=== PATIENT | male | born 1995 | race Two or more races ===

== ENCOUNTER 2018-03-26 11:36 | Emergency (ER) | payer BC ==
[~2018-03-26] VITALS: Ht 185.4 cm; Wt 95.3 kg
[2018-03-26] MEDS ORDERED: EPINEPHrine 1mg/1ml Amp IM ONE (12:00)
[2018-03-26] MEDS ORDERED: Solu-MEDROL 125mg Inj IVP ONE (12:00)
[2018-03-26] MEDS ORDERED: DiphenhydrAMINE 50mg/ml Inj IVP ONE (12:00)
[2018-03-26 12:22] LABS: BASOPHILS % (AUTO) 1.6 % (0.0-2.0); EOSINOPHILS % (AUTO) 2.8 % (0.0-3.0); HEMATOCRIT 56.7 % (42.0-52.0); LYMPHOCYTES % (AUTO) 36.9 % (20.0-45.0); MEAN CORPUSCULAR VOLUME 88 FL (80-99); MONOCYTES % (AUTO) 7.9 % (1.0-10.0); NEUTROPHILS % (AUTO) 50.7 % (45.0-75.0); PLATELET COUNT 375 K/UL (150-450); RED BLOOD COUNT 6.44 M/UL (4.70-6.10); RED CELL DISTRIBUTION WIDTH 11.2 % (11.6-14.8); WHITE BLOOD COUNT 8.1 K/UL (4.8-10.8)
[2018-03-26 12:28] LABS: ANION GAP 7 mmol/L (5-15); BLOOD UREA NITROGEN 11 mg/dL (7-18); CALCIUM 9.3 MG/DL (8.5-10.1); CARBON DIOXIDE 24 MMOL/L (21-32); CHLORIDE 104 MMOL/L (98-107); CREATININE 1.1 MG/DL (0.55-1.30); POTASSIUM 3.9 MMOL/L (3.5-5.1); SODIUM 135 MMOL/L (136-145)
[2018-03-26 12:32] LABS: ALANINE AMINOTRANSFERASE 26 U/L (12-78); ALBUMIN 4.5 G/DL (3.4-5.0); ALBUMIN/GLOBULIN RATIO 1.2 (1.0-2.7); ALKALINE PHOSPHATASE 106 U/L (46-116); ASPARTATE AMINO TRANSFERASE 17 U/L (15-37); BILIRUBIN,TOTAL 0.3 MG/DL (0.2-1.0)
[2018-03-26 12:40] VITALS: BP 133/92
--- NOTE | 2018-03-26 12:51 | Diagnostic Imaging Report ---
Indication: Shortness of breath Technique: One view of the chest Comparison: none Findings: Lungs and pleural spaces are clear. Heart size is normal Impression: No acute process
[2018-03-26 13:40] VITALS: BP 125/80
[2018-03-26 14:17] LABS: APPEARANCE,URINE CLEAR; BILIRUBIN, URINE NEGATIVE (NEGATIVE); COLOR,URINE PALE YELLOW; GLUCOSE, URINE (UA) NEGATIVE (NEGATIVE); KETONES,URINE NEGATIVE (NEGATIVE); LEUKOCYTE ESTERASE ,URINE NEGATIVE (NEGATIVE); NITRITE,URINE NEGATIVE (NEGATIVE); PH,URINE 6.5 (4.5-8.0); PROTEIN,URINE NEGATIVE (NEGATIVE); UROBILINOGEN,URINE NORMAL MG/DL (0.0-1.0)
--- NOTE | 2018-03-26 16:19 | Emergency Room Report ---
History of Present Illness General Chief Complaint: Allergic Reaction Source: Patient Present Illness HPI Patient presents after ingesting aspirin with redness of the skin and facial swelling. He also feels scratchy in his throat. He's never reacted this way before. He's also on Bactrim for a cyst on his chest. He's been on Bactrim for 2 weeks. Temporarily it's not related to the Bactrim. Denies any wheezing or dizziness. There is no nausea vomiting or diarrhea. There is no abdominal pain. The patient also denies any chest pain. No fevers, chills, dysuria, hematuria, extremity pain, joint pain, headache. The patient denies medical problems aside from the cyst on his chest. Allergies: Coded Allergies: ASPIRIN (Verified Allergy, Unknown, 03/26/18) Uncoded Allergies: NUT (Allergy, Unknown, 03/26/18) Patient History Past Medical History: see triage record Social History: Denies: smoking, alcohol use Social History Narrative advertising Reviewed Nursing Documentation: PMH: Agreed; PSxH: Agreed Nursing Documentation-PMH Past Medical History: No History, Except For Hx Asthma: Yes Review of Systems All Other Systems: negative except mentioned in HPI Physical Exam Vital Signs Date Time Temp Pulse Resp B/P (MAP) Pulse Ox O2 Delivery O2 Flow Rate FiO2 03/26/18 11:47 98.4 126 18 133/92 93 Room Air 98.4 Sp02 EP Interpretation: reviewed, normal General Appearance: well appearing, no apparent distress, GCS 15 Head: normocephalic Eyes: bilateral eye PERRL, bilateral eye EOMI, bilateral eye other - Periorbital swelling ENT: normal pharynx, no angioedema, normal voice, moist mucus membranes Neck: supple Respiratory: lungs clear, normal breath sounds Cardiovascular #1: regular rate, rhythm Cardiovascular #2: 2+ radial (R) Gastrointestinal: normal inspection, normal bowel sounds, non tender, no mass, non-distended Musculoskeletal: back normal, gait/station normal, normal range of motion Neurologic: alert, oriented x3, grossly normal Psychiatric: mood/affect normal Skin: warm/dry, other - Wheel and flare reaction with hives and erythroderma Medical Decision Making Diagnostic Impression: Primary Impression: Allergic reaction Qualified Codes: T78.40XA - Allergy, unspecified, initial encounter ER Course Patient presents with rapid onset of facial swelling, scratchiness in his throat and hives with erythroderma. Differential includes allergic reaction, anaphylaxis, hives amongst others. He'll be evaluated with EKG, chest x-ray and labs. He'll be treated with IM epinephrine, slight Medrol, Benadryl and Pepcid. He'll also receive gentle IV hydration. He will have aggressive cardiac monitoring and we will follow the progression of his symptoms. EKG was sinus tachycardia. Chest x-ray clear. Labs unremarkable. Patient is observed. Symptomatology has stabilized and improved dramatically. He has no dyspnea or hypotension. Patient is stable for outpatient observation and treatment. Discussion of the need for outpatient workup of this allergic reaction and avoidance of aspirin and Bactrim were discussed. In addition the patient was given a prescription for epinephrine pen. EKG Diagnostic Results Rate: tachycardiac Rhythm: NSR ST Segments: no acute changes Rhythm Strip Diag. Results Rhythm: no PVC's, no ectopy, other - ST Chest X-Ray Diagnostic Results Chest X-Ray Diagnostic Results : Chest X-Ray Ordered: Yes # of Views/Limited/Complete: 1 View Indication: Other EP Interpretation: Yes Interpretation: no consolidation, no effusion, no pneumothorax Impression: No acute disease Electronically Signed by: Electronically signed by Raj Bass MD Last Vital Signs Date Time Temp Pulse Resp B/P (MAP) Pulse Ox O2 Delivery O2 Flow Rate FiO2 03/26/18 16:41 98.4 75 18 120/80 98 Room Air 98.4 Status: improved Disposition: HOME, SELF-CARE Condition: Improved Scripts Famotidine (PEPCID AC) 20 Mg Tablet 20 MG PO DAILY, #20 TAB Prov: Raj Bass M.D. 03/26/18 Epinephrine (Epipen 2-Sumit) 0.3 Mg/0.3 Ml Auto.injct 0.3 MG IM NEEDED PRN for allergic reaction, #1 EA 1 Refill Prov: Raj Bass M.D. 03/26/18 Diphenhydramine Hcl* (BENADRYL*) 25 Mg Capsule 25 MG ORAL Q6H PRN for Itching, #20 CAP Prov: Raj Bass M.D. 03/26/18 Prednisone* (PREDNISONE*) 20 Mg Tablet 40 MG ORAL DAILY, #10 TAB Prov: Raj Bass M.D. 03/26/18 Raj Bass M.D. Mar 26, 2018 16:19
[2018-03-26] MEDS ORDERED: PEPCID AC20 M2 PO (16:21)
[2018-03-26] MEDS ORDERED: EPIPEN 2-P0.3 MG/0.3 IM (16:21)
[2018-03-26] MEDS ORDERED: BENADRYL25 MG ORAL (16:21)
[2018-03-26] MEDS ORDERED: PREDNISONE20 MG ORAL (16:21)
[2018-03-26 16:27] VITALS: BP 120/80
[2018-03-26 16:41] VITALS: BP 120/80
== END 2018-03-26 16:35 | disposition home or self-care (01) ==
LOC: EMR 12:18
DX: T78.40XA Allergy, unspecified, initial encounter (principal); X58.XXXA Exposure to other specified factors, initial encounter; Z88.6 Allergy status to analgesic agent; Z91.018 Allergy to other foods; R00.0 Tachycardia, unspecified
CPT/HCPCS: 36415; 71045; 80053; 81003; 85025; 93005; 96365; 96366; 96372; 99284; J0171; J1200; J2930; S0028